=== PATIENT | male | born 1960 | race Two or more races ===

== ENCOUNTER 2020-09-24 01:13 | Emergency (ER) | payer MEDICAID, OTHER ==
[~2020-09-24] VITALS: Ht 177.8 cm; Wt 73.5 kg
[2020-09-24 01:59] LABS: Basophils # (auto) 0 10 ^3/uL (0-0.2); Basophils % (auto) 0.6 % (0.0-2.0); Eosinophils # (auto) 0.6 10 ^3/uL (0-0.8); Eosinophils % (auto) 7.5 % (0.0-7.0); Hematocrit 43.5 % (41.0-53.0); Hemoglobin 14.8 g/dL (13.5-17.5); Lymphocytes # (auto) 1.7 10 ^3/uL (0.4-5.4); Lymphocytes % (auto) 20.1 % (10.0-50.0); Mean Corpuscular Hemoglobin 28.7 pg (28.0-32.0); Mean Corpuscular Hgb Conc. 34.2 g/dL (32.0-36.0); Monocytes # (auto) 0.7 10 ^3/uL (0-1.3); Monocytes % (auto) 8.4 % (0.0-12.0); Neutrophils # (auto) 5.2 10 ^3/uL (1.6-8.6); Neutrophils % (auto) 63.4 % (37.0-80.0); Nucleated Red Blood Cells % 0.1 %; Platelet Count (auto) 273 10^3/uL (140-450); Red Blood Cells 5.18 10^6/uL (4.5-5.90); Red Cell Distribution Width 12.9 % (11.8-14.3); White Blood Cell 8.3 10^3/uL (4.4-10.8)
[2020-09-24 02:17] LABS: Albumin 3.4 g/dL (3.4-5.0); Anion Gap 7 (5-15); Blood Urea Nitrogen 14 mg/dL (7-18); Calcium 8.7 mg/dL (8.5-10.1); Carbon Dioxide 26 mmol/L (21-32); Chloride 103 mmol/L (98-107); Glucose 232 mg/dL (74-106); Potassium 3.9 mmol/L (3.5-5.1); Sodium 136 mmol/L (136-145)
[2020-09-24 02:19] LABS: Alanine Aminotransferase 66 U/L (16-61); Aspartate Aminotransferase 30 U/L (15-37); BUN/Creatinine Ratio 13.2; GFR African American 92 mL/min; GFR Non-African American 76 mL/min
[2020-09-24 02:23] LABS: INR 0.96 (0.9-1.15); Partial Thromboplastin Time 28.6 sec (23.0-31.2)
[2020-09-24 02:24] LABS: Alkaline Phosphatase 89 U/L (45-117); Bilirubin, Total 0.5 mg/dL (0.2-1.0); Total Protein 7.5 g/dL (6.4-8.2)
[2020-09-24] MEDS ORDERED: MORPHINE SULFATE 4 MG/ML SYR/VIAL IV ONE (02:45)
[2020-09-24] MEDS ORDERED: ONDANSETRON HCL 4 MG/2 ML VIAL IV ONE (02:45)
[2020-09-24] MEDS ORDERED: IOHEXOL 350 MG/ML 100ML IJ ONE (02:47)
[2020-09-24] MEDS ORDERED: HYDROmorphone HCL 2 MG/ML VL IV ONE (04:00)
[2020-09-24 05:00] VITALS: BP 114/59
[2020-09-24] MEDS ORDERED: DOXYCYCLINE 100MG/250ML 250 ML IV ONE (05:15)
[2020-09-24] MEDS ORDERED: DexAMETHasone SOD PHOS 10MG/1ML VIAL INJ IV ONE (05:15)
== END 2020-09-24 05:27 | disposition home or self-care (01) ==
LOC: ER 01:16
DX: J18.1 Lobar pneumonia, unspecified organism (principal); R79.1 Abnormal coagulation profile; Z20.828 Contact with and (suspected) exposure to other viral communicable diseases
CPT/HCPCS: 36415; 71045; 71275; 80053; 83880; 84443; 84484; 85025; 85379; 85610; 85730; 87426; 93005; 96374; 96375; 99285; J1170; J2270; J2405; Q9967

== ENCOUNTER 2020-10-28 02:42 | Inpatient (IN) | payer MEDICAID ==
[~2020-10-28] VITALS: Ht 177.8 cm; Wt 73.5 kg
[2020-10-28 04:07] LABS: Albumin 2.7 g/dL (3.4-5.0); Anion Gap 5 (5-15); Blood Urea Nitrogen 11 mg/dL (7-18); Calcium 8.5 mg/dL (8.5-10.1); Carbon Dioxide 28 mmol/L (21-32); Chloride 103 mmol/L (98-107); Glucose 291 mg/dL (74-106); Sodium 136 mmol/L (136-145)
[2020-10-28 04:14] LABS: Alanine Aminotransferase 30 U/L (16-61); Alkaline Phosphatase 88 U/L (45-117); Aspartate Aminotransferase 13 U/L (15-37); BUN/Creatinine Ratio 12.8; Bilirubin, Total 0.3 mg/dL (0.2-1.0); GFR African American 117 mL/min; GFR Non-African American 97 mL/min; Total Protein 7.2 g/dL (6.4-8.2)
[2020-10-28] MEDS ORDERED: HYDROcodone-ACET 5/325MG TAB PO ONE (04:15)
[2020-10-28] MEDS ORDERED: ONDANSETRON ODT 4 MG TAB PO ONE (04:15)
[2020-10-28 04:25] LABS: Red Cell Distribution Width 13.2 % (11.8-14.3)
[2020-10-28 04:26] LABS: Hematocrit 41.3 % (41.0-53.0); Hemoglobin 13.6 g/dL (13.5-17.5); Mean Corpuscular Hemoglobin 27.2 pg (28.0-32.0); Mean Corpuscular Hgb Conc. 32.9 g/dL (32.0-36.0); Mean Corpuscular Volume 82.8 fL (80.0-100.0); Platelet Count (auto) 301 10^3/uL (140-450); Red Blood Cells 4.99 10^6/uL (4.5-5.90); White Blood Cell 7.4 10^3/uL (4.4-10.8)
[2020-10-28 04:32] LABS: Basophils % (manual) 0 (0.0-2.0); Blast Cells 0; Metamyelocytes % 0; Myelocytes % 0; Promyelocytes % 0; Reactive Lymphocytes 0
[2020-10-28 05:03] LABS: INR 1.01 (0.9-1.15)
[2020-10-28 06:41] LABS: Band Neutrophils % (manual) 1; Eosinophils % (manual) 18 (0-7); Lymphocytes % (manual) 22 (10.0-50.0); Monocytes % (manual) 9 (0-12)
[2020-10-28] MEDS ORDERED: HYDROcodone-ACET 10/325MG TAB ONE (08:46)
[2020-10-28] MEDS ORDERED: HYDROcodone-ACET 10/325MG TAB PO ONE (09:00)
[2020-10-28] MEDS ORDERED: NITROGLYCERIN 0.4 MG SL TAB SL PRN (11:15)
[2020-10-28] MEDS ORDERED: DEXTROSE (50%) 50ML SYRG IV PRN (11:15)
[2020-10-28] MEDS ORDERED: ACETAMINOPHEN 325 MG TAB PO PRN (11:15)
[2020-10-28] MEDS ORDERED: MORPHINE SULFATE 4 MG/ML SYR/VIAL IV PRN (11:15)
[2020-10-28] MEDS ORDERED: ONDANSETRON HCL 4 MG/2 ML VIAL IV PRN (11:15)
[2020-10-28] MEDS ORDERED: IOHEXOL 350 MG/ML 100ML IJ ONE ×2 (11:49→12:22)
[2020-10-28 12:07] LABS: Cholesterol 153 mg/dL (< 200); Triglycerides 98 mg/dL (< 150)
[2020-10-28 12:10] LABS: HDL Cholesterol 40 mg/dL (40-59); LDL Cholesterol 96 mg/dL (< 100)
[2020-10-28] MEDS ORDERED: INSLISPI SC (13:46)
[2020-10-28] MEDS ORDERED: ZINC100T5 PO (13:46)
[2020-10-28] MEDS ORDERED: ASCO500T11 PO (13:46)
[2020-10-28 13:50] LABS: Cholesterol 152 mg/dL (< 200); HDL Cholesterol 41 mg/dL (40-59); LDL Cholesterol 101 mg/dL (< 100); Triglycerides 97 mg/dL (< 150)
[2020-10-28] MEDS: ACCU-CHEK COMFORT CURVE STRIP VI SCH ×3 (14:01→23:10)
[2020-10-28] MEDS: InsuLIN REG 1unit/0.01ml Soln (100units/ml) SC SCH ×3 (14:30→22:30)
[2020-10-28] MEDS: HYDROcodone-ACET 5/325MG TAB PO PRN (17:14)
[2020-10-28] MEDS: ATORVASTATIN 20 MG TAB PO SCH (23:08)
[2020-10-29] MEDS: HYDROcodone-ACET 5/325MG TAB PO PRN ×4 (00:03→18:34)
[2020-10-29 06:25] LABS: Hematocrit 39.1 % (41.0-53.0); Hemoglobin 13.1 g/dL (13.5-17.5); Mean Corpuscular Hemoglobin 27.5 pg (28.0-32.0); Mean Corpuscular Hgb Conc. 33.4 g/dL (32.0-36.0); Mean Corpuscular Volume 82.5 fL (80.0-100.0); Platelet Count (auto) 293 10^3/uL (140-450); Red Blood Cells 4.74 10^6/uL (4.5-5.90); Red Cell Distribution Width 13.2 % (11.8-14.3); White Blood Cell 6.3 10^3/uL (4.4-10.8)
[2020-10-29 06:32] LABS: Potassium 4.3 mmol/L (3.5-5.1)
[2020-10-29 06:36] LABS: BUN/Creatinine Ratio 17.4
[2020-10-29 06:40] LABS: Band Neutrophils % (manual) 0; Basophils % (manual) 0 (0.0-2.0); Blast Cells 0; Metamyelocytes % 0; Myelocytes % 0; Promyelocytes % 0; Reactive Lymphocytes 0
[2020-10-29] MEDS: ACCU-CHEK COMFORT CURVE STRIP VI SCH ×4 (07:33→23:02)
[2020-10-29] MEDS: InsuLIN REG 1unit/0.01ml Soln (100units/ml) SC SCH ×4 (08:05→23:02)
[2020-10-29 08:33] LABS: Lymphocytes % (manual) 25 (10.0-50.0); Monocytes % (manual) 5 (0-12)
[2020-10-29 08:34] LABS: Eosinophils % (manual) 28 (0-7)
[2020-10-29] MEDS: ASPirin 81 mg TAB PO SCH (09:13)
[2020-10-29] MEDS: ENOXAPARIN SOD 40 MG/0.4 ML SYRINGE SC SCH (09:13)
[2020-10-29] MEDS ORDERED: cefTRIAXone 1GM/50ML D5W 50 ML IV ONE (14:30)
[2020-10-29] MEDS ORDERED: AZITHROMYCIN 250 MG TAB PO ONE (14:30)
[2020-10-29] MEDS: ATORVASTATIN 20 MG TAB PO SCH (23:21)
[2020-10-30] MEDS: HYDROcodone-ACET 5/325MG TAB PO PRN ×2 (02:11→16:00)
[2020-10-30] MEDS ORDERED: cefTRIAXone 1GM/50ML D5W 50 ML IV SCH (09:00)
[2020-10-30] MEDS ORDERED: ADENOSINE 62 MG in GIVE UN-DILUTED 0 ML IV ONE (09:30)
[2020-10-30] MEDS ORDERED: AZITHROMYCIN 250 MG TAB PO SCH (10:00)
[2020-10-30 11:23] VITALS: BP 108/75
[2020-10-30] MEDS: ACCU-CHEK COMFORT CURVE STRIP VI SCH ×3 (11:30→18:26)
[2020-10-30] MEDS ORDERED: AMOX500T86 PO (13:59)
[2020-10-30] MEDS ORDERED: ASPI81CH43 PO (13:59)
[2020-10-30] MEDS ORDERED: ATOR20TA50 PO (13:59)
[2020-10-30] MEDS ORDERED: AZIT250T9 PO (13:59)
[2020-10-30] MEDS ORDERED: METF-372 PO (14:00)
[2020-10-30] MEDS ORDERED: DOXY-112 PO (14:01)
[2020-10-30] MEDS: ASPirin 81 mg TAB PO SCH (14:12)
[2020-10-30] MEDS: ENOXAPARIN SOD 40 MG/0.4 ML SYRINGE SC SCH (14:12)
[2020-10-30] MEDS: InsuLIN REG 1unit/0.01ml Soln (100units/ml) SC SCH ×3 (14:21→18:27)
[2020-10-30 19:26] VITALS: BP 102/71
== END 2020-10-30 19:38 | disposition home or self-care (01) | DRG 201 ==
LOC: ER 02:43 → TELE 02:44
PROVIDERS: ADMIT Nurse Practitioner Acute Care; ATTEND Internal Medicine Nephrology
DX: R00.1 Bradycardia, unspecified (principal); R07.89 Other chest pain; E88.09 Other disorders of plasma-protein metabolism, not elsewhere classified; Z96.653 Presence of artificial knee joint, bilateral; R59.1 Generalized enlarged lymph nodes; J18.9 Pneumonia, unspecified organism; Z20.828 Contact with and (suspected) exposure to other viral communicable diseases; Z79.4 Long term (current) use of insulin; Z83.3 Family history of diabetes mellitus; Z86.73 Personal history of transient ischemic attack (TIA), and cerebral infarction without residual deficits; Z87.891 Personal history of nicotine dependence; Z87.01 Personal history of pneumonia (recurrent); Z90.49 Acquired absence of other specified parts of digestive tract; Z98.52 Vasectomy status; R55 Syncope and collapse; E11.65 Type 2 diabetes mellitus with hyperglycemia
CPT/HCPCS: 36415; 70450; 71045; 71275; 78452; 80048; 80053; 80061; 82728; 82962; 83036; 83516; 83880; 84443; 84484; 85007; 85027; 85379; 85610; 85730; 86141; 86225; 86235; 86635; 87426; 93005; 93017; 93306; 93886; 96374; G0378; J0153; J0696; J1815; Q0162

== ENCOUNTER 2022-09-22 00:36 | Emergency (ER) | payer MEDICAID ==
[~2022-09-22] VITALS: Ht 177.8 cm; Wt 73.2 kg
[~2022-09-22 00:36] MED LIST: AMOX500T86 PO; ASCO500T11 PO; ASPI81CH43 PO; ATOR20TA50 PO; AZIT250T9 PO; DOXY-112 PO; INSLISPI SC; ZINC100T5 PO
[2022-09-22 00:38] VITALS: BP 126/100
[2022-09-22] MEDS ORDERED: KETOROLAC TROMETH 30 MG/ML 1ML VIAL IV ONE (00:45)
[2022-09-22] MEDS ORDERED: NAP500T PO (05:42)
== END 2022-09-22 06:48 | disposition home or self-care (01) ==
LOC: ER 00:36
DX: S80.02XA Contusion of left knee, initial encounter (principal); E11.9 Type 2 diabetes mellitus without complications; Z79.2 Long term (current) use of antibiotics; Z79.82 Long term (current) use of aspirin; Z79.4 Long term (current) use of insulin; Z79.899 Other long term (current) drug therapy; Z96.651 Presence of right artificial knee joint; W10.9XXA Fall (on) (from) unspecified stairs and steps, initial encounter; Y93.89 Activity, other specified; Y92.89 Other specified places as the place of occurrence of the external cause; Y99.8 Other external cause status
CPT/HCPCS: 73562; 96374; 99283; J1885

== ENCOUNTER 2023-07-05 02:59 | Emergency (ER) | payer MEDICAID ==
[~2023-07-05] VITALS: Ht 177.8 cm; Wt 77.3 kg
[~2023-07-05 02:59] MED LIST changes: +AZIT-43 PO; -AZIT250T9 PO; -DOXY-112 PO; +DOXY-267 PO; +NAP500T PO
[2023-07-05] MEDS ORDERED: TETRACAINE HCL 0.5% OPTH(EYE) SOLN 4ML RIGHTEYE ONE (04:15)
[2023-07-05] MEDS ORDERED: FLUORESCEIN SOD OPTH TEST STRIP RIGHTEYE ONE (04:15)
[2023-07-05 04:26] VITALS: BP 154/101; PULSE 70; RESP 19; TEMP 97.6; O2SAT 97
[2023-07-05] MEDS ORDERED: KETOROLAC TROMETH 60MG/2ML VIAL IM ONE (04:45)
[2023-07-05] MEDS ORDERED: ACET500T58 PO (04:58)
[2023-07-05] MEDS ORDERED: ERY05OO OP (04:58)
== END 2023-07-05 05:45 | disposition home or self-care (01) ==
LOC: ER 03:02
DX: S05.01XA Injury of conjunctiva and corneal abrasion without foreign body, right eye, initial encounter (principal); E11.9 Type 2 diabetes mellitus without complications; Z79.899 Other long term (current) drug therapy; Z79.82 Long term (current) use of aspirin; Z79.84 Long term (current) use of oral hypoglycemic drugs; Z98.890 Other specified postprocedural states; X58.XXXA Exposure to other specified factors, initial encounter; Y93.89 Activity, other specified; Y92.89 Other specified places as the place of occurrence of the external cause; Y99.8 Other external cause status
CPT/HCPCS: 96372; 99283; J1885

== ENCOUNTER 2023-12-10 05:57 | Emergency (ER) | payer SELFPAY ==
[~2023-12-10] VITALS: Ht 341.9 cm; Wt 74.6 kg
[~2023-12-10 05:57] MED LIST changes: +ACET500T58 PO; +ERY05OO OP
[2023-12-10 06:08] VITALS: BP 126/76; PULSE 89; RESP 16; TEMP 98.2; O2SAT 99
[2023-12-10] MEDS ORDERED: KETOROLAC TROMETH 60MG/2ML VIAL IM ONE (07:00)
[2023-12-10] MEDS ORDERED: IBUP1TAB5 PO (09:15)
== END 2023-12-10 09:22 | disposition home or self-care (01) ==
LOC: ER 05:57
DX: S83.8X1A Sprain of other specified parts of right knee, initial encounter (principal); E11.9 Type 2 diabetes mellitus without complications; E78.5 Hyperlipidemia, unspecified; Z98.890 Other specified postprocedural states; Z79.899 Other long term (current) drug therapy; W01.0XXA Fall on same level from slipping, tripping and stumbling without subsequent striking against object, initial encounter; Y93.89 Activity, other specified; Y92.090 Kitchen in other non-institutional residence as the place of occurrence of the external cause; Y99.8 Other external cause status
CPT/HCPCS: 73562; 96372; 99283; J1885